=== PATIENT | female | born 1975 | race African-American/Black ===

== ENCOUNTER 2019-10-26 22:43 | Emergency (ER) | payer MEDICAID, OTHER ==
[~2019-10-26] VITALS: Ht 167.6 cm; Wt 81.6 kg
[2019-10-26 22:55] VITALS: BP 116/80
[2019-10-26] MEDS ORDERED: BACITRACIN TOP OINT 1 UD PKG TOP ONE (23:45)
[2019-10-26] MEDS ORDERED: LIDOCAINE 1% HCL (LOCAL ANESTH.) INJ 20ML MDV ID ONE (23:45)
[2019-10-27] MEDS ORDERED: TETANUS-DIPTH-ACEL PERTUSSIS 0.5ML SYR Tdap IM ONE (01:30)
[2019-10-27] MEDS ORDERED: BACITRACIN TOP OINT 1 UD PKG TOP ONE (01:30)
== END 2019-10-27 01:50 | disposition home or self-care (01) ==
LOC: ER 22:43
DX: S61.012A Laceration without foreign body of left thumb without damage to nail, initial encounter (principal); F10.129 Alcohol abuse with intoxication, unspecified; X58.XXXA Exposure to other specified factors, initial encounter; Y93.89 Activity, other specified; Y92.89 Other specified places as the place of occurrence of the external cause; Y99.8 Other external cause status
CPT/HCPCS: 12002; 73130; 90471; 90715; 99283; J2001

== ENCOUNTER 2023-09-28 17:28 | Emergency (ER) | payer MEDICAID ==
[~2023-09-28] VITALS: Ht 167.6 cm; Wt 64.7 kg
[2023-09-28 19:21] LABS: Basophils # (auto) 0 10 ^3/uL (0-0.2); Eosinophils # (auto) 0.1 10 ^3/uL (0-0.8); Hemoglobin 13.5 g/dL (12.2-16.2); Lymphocytes # (auto) 1.7 10 ^3/uL (0.4-5.4); Monocytes # (auto) 0.6 10 ^3/uL (0-1.3); Neutrophils # (auto) 1.7 10 ^3/uL (1.6-8.6); Nucleated Red Blood Cells % 0.1 %; Red Blood Cells 3.93 10^6/uL (4.0-5.20); White Blood Cell 4.2 10^3/uL (4.4-10.8)
[2023-09-28 19:23] LABS: Basophils % (auto) 0.7 % (0.0-2.0); Eosinophils % (auto) 3.2 % (0.0-7.0); Lymphocytes % (auto) 39.9 % (10.0-50.0); Mean Corpuscular Hemoglobin 34.5 pg (28.0-32.0); Mean Corpuscular Hgb Conc. 34.8 g/dL (32.0-36.0); Mean Corpuscular Volume 99.2 fL (80.0-100.0); Monocytes % (auto) 15.5 % (0.0-12.0); Neutrophils % (auto) 40.7 % (37.0-80.0); Red Cell Distribution Width 13.5 % (11.8-14.3)
[2023-09-28 19:30] LABS: Chloride 96 mmol/L (98-107); Potassium 2.8 mmol/L (3.5-5.1); Sodium 127 mmol/L (136-145)
[2023-09-28 19:31] LABS: Anion Gap 8 (5-15); Calcium 9.9 mg/dL (8.7-10.4); Carbon Dioxide 23 mmol/L (20-30)
[2023-09-28 19:36] LABS: BUN/Creatinine Ratio 7.9 (10.0-20.0); Blood Urea Nitrogen < 5 mg/dL (9-23); Glucose 80 mg/dL (74-106)
[2023-09-28] MEDS: SODIUM CHLORIDE 0.9% 1,000 ML IV ONE (20:47)
[2023-09-28] MEDS: THIAMINE HCL 100 MG TAB PO ONE (21:06)
[2023-09-29 01:28] VITALS: BP 127/89; TEMP 97.7
[2023-09-29 01:39] VITALS: PULSE 87; RESP 18; O2SAT 98
== END 2023-09-29 01:44 | disposition short-term general hospital (02) ==
LOC: ER 17:28
DX: E87.1 Hypo-osmolality and hyponatremia (principal); E87.6 Hypokalemia; I10 Essential (primary) hypertension; E78.5 Hyperlipidemia, unspecified; F10.10 Alcohol abuse, uncomplicated; Y90.6 Blood alcohol level of 120-199 mg/100 ml
CPT/HCPCS: 36415; 80048; 80320; 83735; 85025; 93005; 96360; 99291; J7030